=== PATIENT | female | born 1995 | race Caucasian/White ===

== ENCOUNTER 2024-08-24 20:27 | Inpatient (IN) | payer BC ==
[2024-08-24 20:45] VITALS: BMI 28.5
[2024-08-24] MEDS ORDERED: hydrALAZINE 20 MG/ML VIAL SLOW IVP PRN ×2 (21:03→22:05)
[2024-08-24] MEDS ORDERED: Lactated Ringer's 1,000 ML IV SCH (21:15)
[2024-08-24 21:27] LABS: #Basophils 0.05 10x3/uL (0.0-0.2); #Eosinophils 0.03 10x3/uL (0.0-0.5); #Monocytes 0.44 10x3/uL (0.0-1.1); #Neutrophils 7.06 10x3/uL (1.5-8.4); %Basophils 0.5 % (0.0-2.0); %Eosinophils 0.3 % (0.0-6.0); %Lymphocytes 20.6 % (18.0-47.0); %Monocytes 4.6 % (0.0-10.0); %Neutrophils 73.7 % (40.0-75.0); Bilirubin Neg (Negative); Blood, Urine 10 (Negative); Clarity Clear (Clear); Glucose, Urine (Dipstick) Normal (Negative); Hematocrit 34.2 % (34.9-44.5); Hemoglobin 11.5 g/dL (12.0-15.5); Ketone, Urine Negative (Negative); Leukocyte Negative (Negative); Mean Corpuscular HGB CONC 33.6 g/dL (32.0-36.0); Mean Corpuscular Hemoglobin 29.3 pg (27.0-33.0); Mean Corpuscular Volume 87.2 fL (81.6-98.3); Mean Platelet Volume 11.9 fL (7.4-10.4); Nitrite Negative (Negative); Platelet Count 230 10x3/uL (150-450); Protein, Urine (Dipstick) 500 mg/dl (Neg-Trace); RBC Distribution Width 12.4 % (11.5-14.5); Red Blood Cell (RBC) Count 3.92 10x6/uL (3.90-5.03); Urobilinogen Normal mg/dL (Less than 2); White Blood Cell (WBC) Count 9.6 10x3/uL (3.5-10.5); pH, Urine 6.5 (5.0-9.0)
[2024-08-24] MEDS ORDERED: Labetalol HCl 100 MG/20 ML VIAL SLOW IVP PRN (21:57)
[2024-08-24 21:58] LABS: ALT (SGPT) 12 U/L (8-55); AST (SGOT) 14 U/L (5-34); Albumin 2.7 g/dL (3.5-5.0); Alkaline Phosphatase 128 U/L (40-110); Anion Gap 16 mmol/L (10-20); BUN (Urea Nitrogen) 11 mg/dL (7.0-18.7); Bilirubin, Total 0.3 mg/dL (0.2-1.2); Calc. Creatinine Clearance 166 mL/min (70-130); Calcium 9.3 mg/dL (7.8-10.44); Carbon Dioxide 20 mmol/L (22-29); Chloride 105 mmol/L (98-107); Estimated GFR 109; Globulin 3.6 g/dL (2.4-3.5); Glucose 111 mg/dL (70-105); Potassium 3.6 mmol/L (3.5-5.1); Protein, Total 6.3 g/dL (6.0-8.3); Sodium 137 mmol/L (136-145)
[2024-08-24] MEDS ORDERED: Carboprost 250 MCG/ML AMP IM PRN (22:05)
[2024-08-24] MEDS ORDERED: Acetaminophen 500 MG TAB PO PRN (22:05)
[2024-08-24] MEDS ORDERED: Misoprostol 200 MCG TAB PR PRN (22:05)
[2024-08-24] MEDS ORDERED: Promethazine HCl 25 MG/ML VIAL IM PRN (22:05)
[2024-08-24] MEDS ORDERED: Diphenoxylate HCl/Atropine Tablet PO PRN (22:05)
[2024-08-24] MEDS ORDERED: Tranexamic Acid 1,000 MG/10 ML VIAL IVP PRN (22:05)
[2024-08-24] MEDS ORDERED: Oxytocin 30 units/NS 500 ML 500 ML IV SCH (22:15)
[2024-08-24 22:23] LABS: CAUTI Indications for Culture Pregnancy; RBC/HPF 0-3 HPF (0-3); Squamous Epithelial 0-3 HPF (0-3)
[2024-08-24 22:26] LABS: Bacteria/HPF 2+ HPF (None Seen); Mucous/LPF 2+ LPF (<2+); Transitional Epithelial 0-3 HPF (None Seen)
[2024-08-24 22:28] LABS: Urine Culture Reflex No No; Urine Culture Reflex Yes Yes
[2024-08-24 23:17] LABS: Syphilis Antibody Nonreactive (Nonreactive); Syphilis Antibody Index 0.03 S/CO (<1.00 Non-Reactive)
[2024-08-24 23:21] LABS: HBsAg Index 0.19 S/CO (0-0.99); Hep B Surf Ag - L&D Non-Reactive S/CO (NonReactive)
[2024-08-24] MEDS ORDERED: Calcium Gluc 4.6 MEQ/10 ML (100 MG/ML) SLOW IVP PRN (23:54)
[2024-08-24] MEDS ORDERED: Lorazepam 2 MG/ML VIAL SLOW IVP PRN (23:54)
[2024-08-25] MEDS: Magnesium Sulfate 20 gm/500 ml 20 GM/500 ML BAG ONE (00:07)
[2024-08-25] MEDS: Labetalol HCl 100 MG/20 ML VIAL SLOW IVP PRN ×2 (01:16→02:15)
[2024-08-25] MEDS ORDERED: Lidocaine 1% (PF) 30 ML VIAL SC PRN (01:17)
[2024-08-25] MEDS ORDERED: HYDROcodone/Acetaminophen 5/325 mg Tablet PO PRN (01:17)
[2024-08-25] MEDS ORDERED: Ibuprofen 800 MG TAB PO PRN (01:17)
[2024-08-25] MEDS: Misoprostol 100 MCG TAB VAG SCH (02:02)
[2024-08-25] MEDS: Ondansetron PF 4 MG/2 ML Vial IVP PRN ×2 (03:06→17:03)
[2024-08-25] MEDS: fentaNYL 50 mcg/mL 1 mL Vial SLOW IVP PRN (03:06)
[2024-08-25 04:31] LABS: #Basophils 0.07 10x3/uL (0.0-0.2); #Eosinophils 0.03 10x3/uL (0.0-0.5); #Monocytes 0.54 10x3/uL (0.0-1.1); %Basophils 0.7 % (0.0-2.0); %Eosinophils 0.3 % (0.0-6.0); %Lymphocytes 16.4 % (18.0-47.0); %Monocytes 5.6 % (0.0-10.0); %Neutrophils 76.5 % (40.0-75.0); Hematocrit 31.2 % (34.9-44.5); Hemoglobin 10.4 g/dL (12.0-15.5); Mean Corpuscular HGB CONC 33.3 g/dL (32.0-36.0); Mean Corpuscular Hemoglobin 29.3 pg (27.0-33.0); Mean Corpuscular Volume 87.9 fL (81.6-98.3); Mean Platelet Volume 11.9 fL (7.4-10.4); Platelet Count 212 10x3/uL (150-450); RBC Distribution Width 12.3 % (11.5-14.5); Red Blood Cell (RBC) Count 3.55 10x6/uL (3.90-5.03); White Blood Cell (WBC) Count 9.7 10x3/uL (3.5-10.5)
[2024-08-25 04:41] LABS: ALT (SGPT) 13 U/L (8-55); AST (SGOT) 14 U/L (5-34); Albumin 2.4 g/dL (3.5-5.0); Alkaline Phosphatase 131 U/L (40-110); Anion Gap 15 mmol/L (10-20); BUN (Urea Nitrogen) 10 mg/dL (7.0-18.7); Bilirubin, Total 0.3 mg/dL (0.2-1.2); Calc. Creatinine Clearance 177 mL/min (70-130); Calcium 8.2 mg/dL (7.8-10.44); Carbon Dioxide 18 mmol/L (22-29); Chloride 106 mmol/L (98-107); Estimated GFR 119; Globulin 3.1 g/dL (2.4-3.5); Glucose 108 mg/dL (70-105); Magnesium 3.8 mg/dL (1.6-2.6); Potassium 3.7 mmol/L (3.5-5.1); Protein, Total 5.5 g/dL (6.0-8.3); Sodium 135 mmol/L (136-145)
[2024-08-25 09:56] LABS: #Basophils 0.04 10x3/uL (0.0-0.2); #Eosinophils 0.01 10x3/uL (0.0-0.5); #Monocytes 0.52 10x3/uL (0.0-1.1); #Neutrophils 11.39 10x3/uL (1.5-8.4); %Basophils 0.3 % (0.0-2.0); %Eosinophils 0.1 % (0.0-6.0); %Neutrophils 87.1 % (40.0-75.0); Hematocrit 35.8 % (34.9-44.5); Hemoglobin 11.3 g/dL (12.0-15.5); Mean Corpuscular HGB CONC 31.6 g/dL (32.0-36.0); Mean Corpuscular Hemoglobin 28.8 pg (27.0-33.0); Mean Corpuscular Volume 91.3 fL (81.6-98.3); Mean Platelet Volume 11.6 fL (7.4-10.4); Platelet Count 197 10x3/uL (150-450); RBC Distribution Width 12.4 % (11.5-14.5); Red Blood Cell (RBC) Count 3.92 10x6/uL (3.90-5.03); White Blood Cell (WBC) Count 13.1 10x3/uL (3.5-10.5)
[2024-08-25 10:10] LABS: ALT (SGPT) 13 U/L (8-55); AST (SGOT) 17 U/L (5-34); Albumin 2.6 g/dL (3.5-5.0); Alkaline Phosphatase 141 U/L (40-110); Anion Gap 13 mmol/L (10-20); BUN (Urea Nitrogen) 9 mg/dL (7.0-18.7); Bilirubin, Total 0.4 mg/dL (0.2-1.2); Calc. Creatinine Clearance 170 mL/min (70-130); Carbon Dioxide 19 mmol/L (22-29); Chloride 105 mmol/L (98-107); Estimated GFR 113; Globulin 3.4 g/dL (2.4-3.5); Glucose 95 mg/dL (70-105); Potassium 4.1 mmol/L (3.5-5.1); Sodium 133 mmol/L (136-145)
[2024-08-25] MEDS ORDERED: ePHEDrine Sulfate 50 MG/10 ML VIAL SLOW IVP PRN (13:40)
[2024-08-25] MEDS ORDERED: Moisturizing Cream (Eucerin) 113 GM JAR TOP PRN (13:40)
[2024-08-25] MEDS ORDERED: Promethazine HCl 25 MG/ML VIAL IM PRN ×2 (13:40→18:48)
[2024-08-25] MEDS ORDERED: Lactated Ringer's 500 ML IV PRN (13:40)
[2024-08-25] MEDS ORDERED: Acetaminophen 325 MG TAB PO PRN (13:40)
[2024-08-25] MEDS ORDERED: Naloxone HCl 0.4 mg/ml Vial IVP PRN ×2 (13:40)
[2024-08-25] MEDS ORDERED: diphenhydrAMINE 50 MG/ML VIAL IVP PRN (13:40)
[2024-08-25] MEDS ORDERED: fentaNYL 2 mcg/Ropivacaine 0.2% Epidural 100 ML CADD EPIDURAL SCH (13:45)
[2024-08-25] MEDS ORDERED: Communication Order-Pharmacy FS SCH (13:45)
[2024-08-25] MEDS: fentaNYL/Ropivacaine Epidural 100 ML ONE (14:16)
[2024-08-25] MEDS: Magnesium Sulfate 20 gm/500 ml 20 GM/500 ML BAG IVPB SCH (17:03)
[2024-08-25] MEDS ORDERED: Labetalol HCl 100 MG/20 ML VIAL SLOW IVP PRN ×2 (18:48)
[2024-08-25] MEDS ORDERED: Boostrix 0.5 ML (Tdap) VIAL (>/=7 yrs of age) IM ONE (18:48)
[2024-08-25] MEDS ORDERED: diphenhydrAMINE 25 MG CAP PO PRN (18:48)
[2024-08-25] MEDS ORDERED: Calcium Gluc 4.6 MEQ/10 ML (100 MG/ML) SLOW IVP PRN (18:48)
[2024-08-25] MEDS ORDERED: hydrALAZINE 20 MG/ML VIAL SLOW IVP PRN ×3 (18:48)
[2024-08-25] MEDS ORDERED: Milk Of Magnesia 30 ML UDCUP PO PRN (18:48)
[2024-08-25] MEDS ORDERED: Preparation H Ointment 28 GM TUBE PR PRN (18:48)
[2024-08-25] MEDS ORDERED: Lanolin Ointment 7 GM TUBE TOP PRN (18:48)
[2024-08-25] MEDS ORDERED: Ondansetron PF 4 MG/2 ML Vial IVP PRN (18:48)
[2024-08-25] MEDS: Ibuprofen 800 MG TAB PO SCH (20:31)
[2024-08-25] MEDS: Docusate 100 MG CAP PO SCH (23:41)
[2024-08-25] MEDS: NIFEdipine XL 30 MG ER.TAB PO SCH (23:41)
[2024-08-26 04:01] LABS: #Basophils 0.03 10x3/uL (0.0-0.2); #Eosinophils 0.02 10x3/uL (0.0-0.5); #Monocytes 0.68 10x3/uL (0.0-1.1); #Neutrophils 11.03 10x3/uL (1.5-8.4); %Basophils 0.2 % (0.0-2.0); %Eosinophils 0.2 % (0.0-6.0); %Lymphocytes 9.3 % (18.0-47.0); %Monocytes 5.2 % (0.0-10.0); %Neutrophils 84.6 % (40.0-75.0); Hematocrit 31.5 % (34.9-44.5); Hemoglobin 10.1 g/dL (12.0-15.5); Mean Corpuscular HGB CONC 32.1 g/dL (32.0-36.0); Mean Corpuscular Hemoglobin 28.5 pg (27.0-33.0); Mean Platelet Volume 11.6 fL (7.4-10.4); Platelet Count 212 10x3/uL (150-450); RBC Distribution Width 12.2 % (11.5-14.5); Red Blood Cell (RBC) Count 3.54 10x6/uL (3.90-5.03)
[2024-08-26] MEDS: Acetaminophen 500 MG TAB PO SCH (05:43)
[2024-08-26] MEDS: Ferrous Sulfate 325 MG TAB PO SCH (08:39)
[2024-08-26] MEDS: NIFEdipine XL 30 MG ER.TAB PO SCH (08:42)
[2024-08-26] MEDS ORDERED: NIFEdipine XL 30 MG ER.TAB PO SCH ×2 (09:00)
[2024-08-26] MEDS ORDERED: Lorazepam 2 MG/ML VIAL SLOW IVP PRN (13:42)
[2024-08-26] MEDS: Magnesium Sulfate 20 gm/500 ml 20 GM/500 ML BAG IVPB SCH (13:42)
[2024-08-26] MEDS ORDERED: traMADol HCl 50 MG TAB PO PRN (13:42)
[2024-08-26] MEDS: Magnesium Sulfate 20 gm/500 ml 20 GM/500 ML BAG ONE ×2 (20:20)
[2024-08-26] MEDS: hydrALAZINE 20 MG/ML VIAL ONE (20:21)
[2024-08-27] MEDS: Benzocaine-Menthol 82.5 ML CAN TOP PRN (08:48)
[2024-08-28 07:26] VITALS: BP 125/81; TEMP 98.2
== END 2024-08-28 08:25 | disposition home or self-care (01) | DRG 807 ==
LOC: CSHLD/OP 20:27 → CSHLD 22:06 → CSHPP 08-26 19:42
PROVIDERS: ADMIT Obstetrics & Gynecology; ATTEND Obstetrics & Gynecology
PROC: 10E0XZZ Delivery of Products of Conception, External Approach (ICD-10-PCS; principal; 2024-08-25)
PROC: 0KQM0ZZ Repair Perineum Muscle, Open Approach (ICD-10-PCS; 2024-08-25)
DX: O14.14 Severe pre-eclampsia complicating childbirth (principal); Z37.0 Single live birth; Z3A.39 39 weeks gestation of pregnancy; O70.1 Second degree perineal laceration during delivery
CPT/HCPCS: 36415; 51702; 80053; 81001; 82570; 83735; 84156; 85025; 86780; 86850; 86900; 86901; 87086; 87340; 99285; J0360; J2405; J3010; J3475